=== PATIENT | female | born 1945 | race Caucasian/White ===

== ENCOUNTER 2022-04-22 12:33 | Emergency (ER) | payer MEDICARE, OTHER ==
[2022-04-22] VITALS (14 sets, daily range): BP systolic 96–129; BP diastolic 56–90
[~2022-04-22] VITALS: Ht 162.6 cm; Wt 62.2 kg
[2022-04-22 12:56] LABS: BASO% 0.4 % (0-3); EOS% 1.6 % (0-8); IMMATURE GRANULOCYTES 0.9 % (0.0-5.0); LYMPH% 58.5 % (15-41); MEAN CORPUSCULAR HGB 31.3 pG CALC (26.0-32.0); MEAN CORPUSCULAR HGB CONC 33.3 g/dL CAL (32.0-36.0); NEUT# 2.75 thou/uL (2.00-7.15); NEUT% 30.6 % (42-76); RED BLOOD COUNT 3.83 mill/uL (4.20-5.60); RED CELL DISTRI WIDTH 12.5 % (11.5-15.5)
[2022-04-22] MEDS ORDERED: LEVOTHYROXIN100 MCG PO (13:07)
[2022-04-22] MEDS ORDERED: [UNRECOGNIZED DRUG - CODE] XX (13:08)
[2022-04-22 13:15] LABS: ALBUMIN 4.2 g/dL (3.2-5.0); ALKALINE PHOSPHATASE 65 u/l (38-126); ANION GAP 15 (6-22 (CALC)); BILIRUBIN, TOTAL 0.6 mg/dL (0.02-1.3); BUN 18 mg/dL (8-23); BUN/CREATININE RATIO 22 (12-20 (CALC)); CARBON DIOXIDE 19 mmol/l (22-30); CHLORIDE 107 mmol/l (95-108); CREATININE 0.8 mg/dL (0.5-1.0); GFR FOR AFR.AMER. > 60 ML/MIN (>=60 (CALC)); GFR OTHER RACES > 60 ML/MIN (>=60 (CALC)); LIPASE 197 u/l (23-300); SGOT/AST 36 u/l (9-36); SODIUM 139 mmol/l (137-146); TOTAL PROTEIN 6.9 g/dL (6.3-8.2)
[2022-04-22 14:32] LABS: URINE BILIRUBIN - DIPSTICK NEGATIVE (NEGATIVE); URINE BLOOD DIPSTICK NEGATIVE (NEGATIVE); URINE COLOR YELLOW; URINE GLUCOSE - DIPSTICK NEGATIVE (NEGATIVE); URINE KETONE NEGATIVE (NEGATIVE); URINE LEUK ESTERASE NEGATIVE (NEGATIVE); URINE PH 7.5 (4.5-8.0); URINE PROTEIN - DIPSTICK NEGATIVE (NEG-TRACE); URINE UROBILINOGEN - DIPSTICK 0.2 E.U./dL (0.2)
[2022-04-22 15:05] LABS: URINE NITRITE - DIPSTICK NEGATIVE (Negative)
[2022-04-22] MEDS ORDERED: ZOFRAN4 MG/TAB PO (16:37)
[2022-04-22] MEDS ORDERED: TAM75CAP PO (16:37)
[2022-04-22] MEDS ORDERED: K-TAB20 MEQ PO (16:57)
== END 2022-04-22 17:00 | disposition home or self-care (01) ==
LOC: ED 12:33
PROVIDERS: Family Medicine
DX: J10.1 Influenza due to other identified influenza virus with other respiratory manifestations (principal); Z20.822 Contact with and (suspected) exposure to COVID-19